=== PATIENT | male | born 1950 | race Caucasian/White ===

== ENCOUNTER 2020-04-30 11:15 | Outpatient (CLI) | payer MEDICARE, OTHER, SELFPAY ==
--- NOTE | ~2020-04-30 | XR_ITS ---
MODIFIED ESOPHAGRAM HISTORY: Dysphagia. TECHNIQUE: Modified barium esophagram was performed on 04/30/2020. I administered fluoroscopy and perf ormed the exam with speech pathologist. Patient was seated for lateral fluoroscopic imaging for isra stion of thin liquids, pudding, solids and quantified amounts, followed by thin liquids in uncontroll ed amounts. This was recorded on tape. A single fluoroscopic spot image was also recorded. The DAP fo r this procedure was 3.538 Gycm2. The amount of fluoroscopy time used during this procedure was 3.4 m inutes. FINDINGS: Oral stage: Adequate function. Pharyngeal stage: Reduced laryngeal elevation and tongue base retraction resulting in increased resid ue at the vallecula and piriform sinuses and laryngeal penetration. No aspiration observed although p atient likely at increased risk. Cervical/esophageal stage: Adequate function. IMPRESSION: Pharyngeal dysphagia with recurrent laryngeal penetration without evident see report aspi ration. Please correlate with speech pathologist findings and specific feeding recommendations. Reviewed, dictated and finalized at location A. IMPRESSION: Pharyngeal dysphagia with recurrent laryngeal penetration without e vident see report aspiration. Please correlate with speech pathologist finding s and specific feeding recommendations.
--- NOTE | 2020-05-01 13:26 | STOPEVAL ---
MODIFIED BARIUM SWALLOW EVALUATION: Thank you for referring Rodolfo Mistry Fabian Olsen to [facility] [place]. Attending ProviderS: Venkatesh Wood MD & Matias Claudio MD * Outpatient Evaluation: MBS Start: 04/30/20 15:39 Freq: Status: Discharge Protocol: Document 04/30/20 11:45 BECHERERT (Rec: 04/30/20 15:56 BECHERERT [id number]) Therapy Assessment Status Assessment Status Assessment Status Evaluation Outpatient Past Medical History Past Medical History Source of Past Medical History Patient Neurological History Hx Parkinson's Disease Yes Prior Level of Function Prior Swallow Level Prior Intake Method Oral Prior Diet Regular (Level 7 Diet) Prior Liquid Consistency Thin (Level 0 Diet) Pain Assessment Timing of Pain Assessment Timing of Pain Assessment Assessment Self Report Self Report Pain Level 0 Pain Score Pain Score 0: Self Report Modified Barium Swallow Evaluation Recent Swallowing History Reports Dysphagia Yes: choking on pills & solids History of Related Medical Diagnosis Parkinson's Disease Other Factors Impacting Dysphagia Neurological Impairment History of Pneumonia No Reported Difficult Consistencies Pills,Solids Intake Method Prior to Swallow Oral Evaluation Diet Prior to Swallow Evaluation Regular, Level 7 Liquid Consistency Prior to Swallow Thin (0) Evaluation Dentition Comments adequate dentition Consistency Thin Uncontrolled 2 Method of Presentation Straw Oral Preparatory Symptoms Within Functional Limits Oral Phase Symptoms Within Functional Limits Pharyngeal Phase Symptoms Laryngeal Penetration,Reduced Laryngeal Elevation,Reduced Lingual Pressure,Residue in [place],Residue/Pyriform Sinus Severity of Vallecular Residue Trace - 1-5 % Trace Coating of the Mucosa Severity of Pyriform Sinus Residue Moderate - 25-50 % Up Wall to Half Full 8 Point Laryngeal Penetration-Aspiration Material Enters the Airway, Scale Remains Above Vocal Folds, is Ejected Pharyngeal Phase Comments Moderate laryngeal penetration occurred during the swallow but appeared to clear without aspiration. Increased aspiration risk c/t cup drinking Cervical/Esophageal Symptoms Within Functional Limits Thin Uncontrolled 1 Method of Presentation Cup Oral Preparatory Symptoms Within Functional Limits Oral Phase Symptoms Within Functional Limits Pharyngeal Phase S
== END 2020-04-30 11:16 | disposition home or self-care (01) ==
PROVIDERS: PCP Family Medicine; Visit Provider Family Medicine
DX: R13.13 Dysphagia, pharyngeal phase (principal)
CPT/HCPCS: 92611

== ENCOUNTER 2020-12-17 14:37 | Outpatient (CLI) | payer MEDICARE, OTHER, SELFPAY | END 2020-12-17 14:38 | disposition home or self-care (01) | LOC: ANHCOVIDVC 14:37 | PROVIDERS: PCP Family Medicine | DX: Z23 Encounter for immunization (principal) | CPT/HCPCS: 0001A; 91300 ==

== ENCOUNTER 2021-01-07 14:33 | Outpatient (CLI) | payer MEDICARE, OTHER, SELFPAY | END 2021-01-07 14:34 | disposition home or self-care (01) | LOC: ANHCOVIDVC 14:34 | PROVIDERS: PCP Family Medicine | DX: Z23 Encounter for immunization (principal) | CPT/HCPCS: 0002A; 91300 ==

== ENCOUNTER 2022-03-11 18:23 | Emergency (ER) | payer MEDICARE, SELFPAY ==
[2022-03-11 18:24] VITALS: BP 118/90; PULSE 85; RESP 24; TEMP 36.4; O2SAT 98
--- NOTE | 2022-03-11 18:32 | ECG_ITS ---
Measurements Intervals [place] Rate: 82 P: 5 SD: 174 QRS: -24 QRSD: 110 T: 11 QT: 403 QTc: 473 Interpretive Statements SINUS RHYTHM FREQUENT ATRIAL PREMATURE COMPLEXES LOW QRS VOLTAGE IN LIMB LEADS BORDERLINE T WAVE ABNORMALITY- DIFFUSE LEADS BASELINE ARTIFACT- I, II, III, AVR, AVL, AVF, V1-V6 ABNORMAL ECG Electronically Signed On 03-11-2022 20:41:20 CDT by Brian Brownlee D.O.
[2022-03-11 18:58] LABS: Basophils Percent Auto 0.2 % (0.2-1.2); Eosinophils Percent Auto 0.3 % (0-4.4); Hematocrit 39.6 % (42.0-52.0); Hemoglobin 12.6 g/dL (14.0-18.0); Immature Granulocyte Absolute 0.02 K/mm3 (0.00-0.031); Immature Granulocyte Percent A 0.3 % (0-0.5); Lymphocytes Absolute Auto 1.08 K/mm3 (0.9-3.2); Lymphocytes Percent Auto 18.2 % (18.3-44.2); Mean Corpuscular HGB Conc 31.8 g/dl (32-36); Mean Corpuscular Hemoglobin 31.3 pg (26-34); Mean Corpuscular Volume 98.3 fl (80-100); Mean Platelet Volume 11.1 fl (7.4-10.4); Monocytes Absolute Auto 0.8 K/mm3 (0.1-0.6); Monocytes Percent Auto 13.4 % (2.6-8.5); Neutrophils Percent Auto 67.6 % (45.5-73.1); Platelet Count Result 177 k/mm3 (150-375); Red Blood Count 4.03 M/mm3 (4.6-6.20); Red Cell Distribution Width 17.3 % (11.5-14.5)
[2022-03-11 19:08] LABS: Alanine Aminotransferase 8 U/L (6-50); Albumin Level 4.2 g/dL (3.5-5.1); Alkaline Phosphatase 79 U/L (38-126); Anion Gap 8 mmol/L (8-16); Aspartate Amino Transferase 44 U/L (17-59); Bilirubin,Total 0.6 mg/dL (0.2-1.3); Blood Urea Nitrogen 17 mg/dL (9-20); Calcium 9.2 mg/dL (8.4-10.2); Carbon Dioxide 28 mmol/L (22-30); Chloride 104 mmol/L (98-107); Estimated CRCL calculation 67 ml/min; Estimated Glomerular Filt Rate > 60; Glucose 110 mg/dL (65-110); Potassium 3.4 mmol/L (3.4-5.0); Sodium 140 mmol/L (137-145)
[2022-03-11 19:09] VITALS: RESP 27; O2SAT 98
[2022-03-11 19:10] LABS: INR 2.2
[2022-03-11 19:11] LABS: Partial Thromboplastin Time 43.5 SECONDS (22.3-36.8)
[2022-03-11] MEDS: SODIUM CHLORIDE 0.9% IV 1,000 ML 999 ML IV CONT (19:55)
[2022-03-11 19:59] VITALS: BP 138/126; PULSE 82; RESP 22; O2SAT 97
--- NOTE | 2022-03-11 20:00 | PC.NURSE ---
Pt keeps arms tense while blood pressure continues. Due to disease process, pt is unable to stay relaxed and still during blood pressure, therefore blood pressure may not be accurate to pt true condition
[2022-03-11 21:04] VITALS: BP 159/109; PULSE 83; RESP 20; O2SAT 95
[2022-03-11 21:16] LABS: Appearance Urine Clear (Clear); Bilirubin Urine 1+ (Negative); Blood Urine Negative (Negative); Color Urine Yellow (Yellow); Glucose Urine UA Negative (Negative); Ketones Urine 1+ mg/dL (Negative); Leukocyte Esterase Ur Negative LEU/UL (Negative); Nitrate Urine Negative (Negative); Protein Urine Trace mg/dL (Negative); Specific Grav Ur >= 1.030 (1.001-1.035); Urobilinogen Urine 0.2 mg/dL (<2.0)
[2022-03-11 21:21] LABS: Add Urine Microscopic? YES; Calcium Oxalate Crystals Urine Present /hpf; Mucus Urine Heavy /lpf; Squamous Epithelial Cell Urine Occasional /hpf (Few)
[2022-03-11 21:46] VITALS: BP 155/99; PULSE 85; RESP 18; O2SAT 94
--- NOTE | 2022-03-11 23:02 | ED.GENADULT ---
HPI - General Adult General Chief complaint: Altered Mental Status Stated complaint: Altered Mental Status, Lift Assist Time Seen by Provider: 03/11/22 19:05 History of Present Illness HPI narrative: Patient is a 72-year-old male who presents the ER with weakness and agitation according to his . Reports he was recently restarted on a Parkinson's medication through PEG tube at [facility]. His tube had malfunctioned and he had been taking Sinemet prior to that. She reports today he was more agitated and not wanting to follow directions. He had poor oral intake and has had some dark urine. She reports she sat on a lawnmower in the front yard for approximately 3 hours with it barely moving. He had no loss consciousness. He denies any pain. He has not fallen. Due to her concern [facility] recommended he be evaluated to make sure there is not an additional issue that may be causing him to act irritable. Patient's also reports that she is currently attempting to find a usp/memory care they can care for him. She does feel she can care for him at this time. Related Data Allergies Allergy/AdvReac Type Severity Reaction Status Date / Time morphine Allergy Severe ESOPHAGEAL Verified 11/22/18 12:30 SPASM niacin Allergy Severe Verified 11/22/18 12:30 Penicillins Allergy Mild Verified 11/22/18 12:30 sertraline Allergy Mild Verified 11/22/18 12:30 oxcarbazepine Allergy Unknown Verified 11/22/18 12:30 Review of Systems Review of Systems: ROS unobtainable: Yes unobtainable due to medical condition PMFSH Past Medical History Medical History (Updated 03/12/22 @ 00:00 by Simran Farris) Anxiety Barretts esophagus COPD (chronic obstructive pulmonary disease) Dementia Depression DVT (deep venous thrombosis) Parkinsons disease Surgical History Surgical History (Updated 03/11/22 @ 23:10 by Daniel Roman MD) History of esophagogastroduodenoscopy (EGD) S/P percutaneous endoscopic gastrostomy (PEG) tube placement Exam Narrative: GENERAL: Chronically ill-appearing, well-nourished, and in no acute distress. HEAD: Normocephalic, atraumatic. EYES: PERRL and EOMI. ENT: Mucous membranes moist. CHEST: Clear to auscultation. No respiratory distress. HEART: Regular rate and rhythm. Normal peripheral pulses. ABDOMEN: Soft, nontender, nondistended. Peg tube w/o signs of infection. EXTREMITIES: Normal range of motion. 1+ edema. SKIN: Warm, dry, no rash. NEURO: Alert and oriented x2. PSYCH: Normal mood and affect. Course Course Emergency Course: Patient resting comfortably. Eating and drinking. Has received IV fluid. has been informed of results. Comfortable discharge home. Vital Signs Vital signs: Vital Signs Temperature 97.5 F L 03/11/22 18:24 Pulse Rate 85 03/11/22 18:24 Respiratory Rate 24 H 03/11/22 18:24 Blood Pressure 118/90 03/11/22 18:24 Pulse Oximetry 98 03/11/22 18:24 Oxygen Delivery Room Air 03/11/22 18:24 Temperature 97.5 F L 03/11/22 18:24 Pulse Rate 70 03/11/22 23:14 Respiratory Rate 18 03/11/22 23:14 Blood Pressure 149/105 H 03/11/22 23:14 Pulse Oximetry 95 03/11/22 23:14 Oxygen Delivery Room Air 03/11/22 18:24 Medical Decision Making Vital Signs Vital Signs: Vital Signs Temperature 97.5 F L 03/11/22 18:24 Pulse Rate 85 03/11/22 18:24 Respiratory Rate 24 H 03/11/22 18:24 Blood Pressure 118/90 03/11/22 18:24 Pulse Oximetry 98 03/11/22 18:24 Oxygen Delivery Room Air 03/11/22 18:24 Temperature 97.5 F L 03/11/22 18:24 Pulse Rate 70 03/11/22 23:14 Respiratory Rate 18 03/11/22 23:14 Blood Pressure 149/105 H 03/11/22 23:14 Pulse Oximetry 95 03/11/22 23:14 Oxygen Delivery Room Air 03/11/22 18:24 Lab Data Result diagrams: 03/11/22 18:52 03/11/22 18:52 Labs: Lab Results 03/11/22 03/11/22 03/11/22 Range/Units 18:52 18:52 18:52 WBC 6.0 (4.5-10.0) K/mm3 RBC
[2022-03-11 23:14] VITALS: BP 149/105; PULSE 70; RESP 18; O2SAT 95
== END 2022-03-11 23:15 | disposition home or self-care (01) ==
PROVIDERS: Emergency Medicine; Emergency Provider Emergency Medicine; PCP Family Medicine
DX: E86.0 Dehydration (principal); G20 Parkinson's disease; F03.90 Unspecified dementia, unspecified severity, without behavioral disturbance, psychotic disturbance, mood disturbance, and anxiety; K22.70 Barrett's esophagus without dysplasia; J44.9 Chronic obstructive pulmonary disease, unspecified; Z86.718 Personal history of other venous thrombosis and embolism; I49.1 Atrial premature depolarization; R94.31 Abnormal electrocardiogram [ECG] [EKG]
CPT/HCPCS: 36415; 80053; 81001; 85025; 85610; 85730; 93005; 96360; 99283; J7030

== ENCOUNTER 2022-05-08 19:40 | Emergency (ER) | payer MEDICARE, SELFPAY ==
[2022-05-08 19:37] VITALS: BP 134/89; PULSE 94; RESP 20; TEMP 36.9; O2SAT 95
--- NOTE | 2022-05-08 20:13 | ED.FEVER ---
HPI - Fever General Chief Complaint: Fever Stated Complaint: fever and painful urination Time Seen by Provider: 05/08/22 19:48 History of Present Illness HPI Narrative: 72-year-old male presented to the emergency department for evaluation of fever with suspected urinary tract infection. Patient does have underlying history of Parkinson's and dementia. states that the patient has been more agitated today. Related Data Allergies Allergy/AdvReac Type Severity Reaction Status Date / Time morphine Allergy Severe ESOPHAGEAL Verified 11/22/18 12:30 SPASM niacin Allergy Severe Verified 11/22/18 12:30 Penicillins Allergy Mild Verified 11/22/18 12:30 sertraline Allergy Mild Verified 11/22/18 12:30 oxcarbazepine Allergy Unknown Verified 11/22/18 12:30 Review of Systems Review of Systems: ROS unobtainable: Yes unobtainable due to medical condition PMFSH Past Medical History Medical History (Updated 05/09/22 @ 00:00 by Simran Farris) Anxiety Barretts esophagus COPD (chronic obstructive pulmonary disease) Dementia Depression DVT (deep venous thrombosis) Parkinsons disease Surgical History Surgical History (Updated 03/11/22 @ 23:10 by Daniel Roman MD) History of esophagogastroduodenoscopy (EGD) S/P percutaneous endoscopic gastrostomy (PEG) tube placement Exam Narrative: APPEARANCE: Well appearing HEAD: normocephalic, atraumatic. EYES: PERRLA/EOMI, conjunctivae clear. NOSE: Normal no drainage NECK: Supple. No adenopathy, no masses. RESPIRATORY: Airway patent, respirations nonlabored. Clear to auscultation bilaterally, no rales, rhonchi, wheezing. CARDIOVASCULAR: Regular rate and rhythm without murmurs rubs or gallops. ABDOMINAL: Soft, nontender, nondistended, normal bowel sounds MUSCULOSKELETAL: Moves all extremities. Strength/ROM intact, No edema, No calf tenderness. NEURO: Alert. Cranial nerves II through XII intact. At patient's baseline. No focal deficit SKIN: Warm, dry. Normal Color Course Course Emergency Course: Patient does have a urinary tract infection. Patient was started on Cipro due to underlying medication allergies. Patient was offered admission and patient and declined and preferred discharge to home. They were educated on reasons to return to the emergency department and on the importance of close follow-up with primary care physician. All question concerns were addressed. Patient was well-appearing at time of discharge from the emergency department. Vital Signs Vital signs: Vital Signs Temperature 98.5 F 05/08/22 19:37 Pulse Rate 94 05/08/22 19:37 Respiratory Rate 20 05/08/22 19:37 Blood Pressure 134/89 05/08/22 19:37 Pulse Oximetry 95 05/08/22 19:37 Oxygen Delivery Room Air 05/08/22 19:37 Temperature 98.5 F 05/08/22 19:37 Pulse Rate 94 05/08/22 19:37 Respiratory Rate 20 05/08/22 19:37 Blood Pressure 134/89 05/08/22 19:37 Pulse Oximetry 95 05/08/22 19:37 Oxygen Delivery Room Air 05/08/22 19:37 MDM - Fever Lab Data Attestation: I reviewed the patient's lab results. Result diagrams: 05/08/22 20:33 05/08/22 20:33 Labs: Lab Results 05/08/22 05/08/22 05/08/22 Range/Units 20:14 20:33 20:33 WBC 5.9 (4.5-10.0) K/mm3 RBC 4.01 L (4.6-6.20) M/mm3 Hgb 12.2 L (14.0-18.0) g/dL Hct 38.8 L (42.0-52.0) % MCV 96.8 (80-100) fl MCH 30.4 (26-34) pg MCHC 31.4 L (32-36) g/dl RDW 15.9 H (11.5-14.5) % Plt Count 188 (150-375) k/mm3 MPV 10.8 H (7.4-10.4) fl Immature Gran % (Auto) 0.8 H (0-0.5) % Neut % (Auto) 79.1 H (45.5-73.1) % Lymph % (Auto) 4.2 L (18.3-44.2) % [place] % (Auto) 15.7 H (2.6-8.5) % Eos % (Auto) 0.0 (0-4.4) % Baso % (Auto) 0.2 (0.2-1.2) % Lymph # (Auto) 0.25 L (0.9-3.2) K/mm3 [place] # (Auto) 0.9 H (0.1-0.6) K/mm3 Eos # (Auto) 0.0 (0-0.3) K/mm3 Baso # (Auto) 0.0 (0.0-0.1) K/mm3 Abs Immat G
[2022-05-08] MEDS: SODIUM CHLORIDE 0.9% IV 1,000 ML 999 ML IV CONT (20:35)
[2022-05-08 20:37] LABS: Basophils Percent Auto 0.2 % (0.2-1.2); Hematocrit 38.8 % (42.0-52.0); Hemoglobin 12.2 g/dL (14.0-18.0); Immature Granulocyte Absolute 0.05 K/mm3 (0.00-0.031); Immature Granulocyte Percent A 0.8 % (0-0.5); Lymphocytes Absolute Auto 0.25 K/mm3 (0.9-3.2); Lymphocytes Percent Auto 4.2 % (18.3-44.2); Mean Corpuscular HGB Conc 31.4 g/dl (32-36); Mean Corpuscular Hemoglobin 30.4 pg (26-34); Mean Corpuscular Volume 96.8 fl (80-100); Mean Platelet Volume 10.8 fl (7.4-10.4); Monocytes Absolute Auto 0.9 K/mm3 (0.1-0.6); Monocytes Percent Auto 15.7 % (2.6-8.5); Neutrophils Absolute Auto 4.7 K/mm3 (1.3-6.7); Neutrophils Percent Auto 79.1 % (45.5-73.1); Platelet Count Result 188 k/mm3 (150-375); Red Blood Count 4.01 M/mm3 (4.6-6.20); Red Cell Distribution Width 15.9 % (11.5-14.5); White Blood Count 5.9 K/mm3 (4.5-10.0)
[2022-05-08] MEDS: LORazepam INJ (*CRX) 2 MG/ML VIAL 0.5 MG IV PUSH (20:37)
[2022-05-08 20:49] LABS: Alanine Aminotransferase 7 U/L (6-50); Albumin Level 3.8 g/dL (3.5-5.1); Alkaline Phosphatase 97 U/L (38-126); Anion Gap 8 mmol/L (8-16); Aspartate Amino Transferase 23 U/L (17-59); Bilirubin,Total 1.1 mg/dL (0.2-1.3); Blood Urea Nitrogen 21 mg/dL (9-20); Calcium 9.3 mg/dL (8.4-10.2); Carbon Dioxide 29 mmol/L (22-30); Chloride 99 mmol/L (98-107); Estimated Glomerular Filt Rate > 60; Glucose 100 mg/dL (65-110); Potassium 3.6 mmol/L (3.4-5.0); Sodium 136 mmol/L (137-145)
[2022-05-08 20:56] LABS: SARS-CoV-2 RNA PCR Negative
[2022-05-08 21:05] LABS: Appearance Urine Slightly Cloudy (Clear); Bilirubin Urine 1+ (Negative); Blood Urine 2+ (Negative); Color Urine Yellow (Yellow); Glucose Urine UA Negative (Negative); Ketones Urine 1+ mg/dL (Negative); Leukocyte Esterase Ur 2+ LEU/UL (Negative); Nitrate Urine Positive (Negative); Protein Urine 2+ mg/dL (Negative); Specific Grav Ur 1.025 (1.001-1.035)
[2022-05-08 21:17] LABS: Add Urine Microscopic? YES; Bacteria Urine Trace /hpf; Calcium Oxalate Crystals Urine Present /hpf; Mucus Urine Moderate /lpf; RBC Urine >75 /hpf (0-2); WBC Clumps Urine Present /HPF; WBC Urine >75 /hpf
[2022-05-08] MEDS: CIPROFLOXACIN 400 MG/D5W 200ML 200 ML 200 MG IVPB (22:06)
== END 2022-05-08 23:48 | disposition home or self-care (01) ==
PROVIDERS: Emergency Provider Emergency Medicine; PCP Family Medicine
DX: N39.0 Urinary tract infection, site not specified (principal); Z20.822 Contact with and (suspected) exposure to COVID-19; G20 Parkinson's disease; F03.90 Unspecified dementia, unspecified severity, without behavioral disturbance, psychotic disturbance, mood disturbance, and anxiety; J44.9 Chronic obstructive pulmonary disease, unspecified; K22.70 Barrett's esophagus without dysplasia; Z86.718 Personal history of other venous thrombosis and embolism
CPT/HCPCS: 36415; 51701; 80053; 81001; 85025; 87077; 87086; 87186; 99283; C9803; J0131; J0744; J2060; J7030; U0003; U0005

== ENCOUNTER 2022-05-28 18:19 | Inpatient (IN) | payer MEDICARE, SELFPAY ==
--- NOTE | ~2022-05-28 | XR_ITS ---
XR chest 1V portable 05/28/2022 19:04 Indication: Fever. COPD. Dementia. Procedure: AP portable chest Comparison: Comparison to multiple prior studies sequentially, with oldest reviewed study dated 03/2016. Findings: Cardiomegaly. Moderate gastric distention. There is bibasilar atelectasis. No focal pneumon ia, edema or pneumothorax. No significant effusion. Impression: 1: Bibasilar atelectasis. 2: Cardiomegaly. Reviewed, dictated and finalized at location A. Impression: 1: Bibasilar atelectasis. 2: Cardiomegaly.
--- NOTE | ~2022-05-28 | CT_ITS ---
EXAMINATION: CT abdomen pelvis w con DATE: 05/28/2022 19:58 INDICATION: Fever. Possible pyelonephritis. TECHNIQUE: Computed tomography (CT) of the abdomen and pelvis was performed without intravenous contr ast. The dose-length product was 1061.54 mGy-cm. Automated exposure control and iterative reconstruct ion technique were employed. COMPARISON: CT dated 02/21/2016. FINDINGS: There is right lower lobe dependent atelectasis. There is a jejunal tube. There is severe g astric distention. There are multiple hypovascular areas of the right hepatic lobe inferiorly which a ppears slightly more prominent than on prior CT examination, possibly related to timing of contrast b olus. Recommend correlation with MRI for further characterization of these masses. The largest measur es approximately 4.4 x 4 cm, image 57. The spleen, pancreas, adrenal glands and kidneys are unremarka ble. Status post cholecystectomy. There is moderate fluid throughout the small bowel. Moderate coloni c fecal loading. There is atherosclerosis and ectasia of the aorta and iliac arteries. There is bladd er wall thickening, suspicious for cystitis. Sclerotic lesion is present in L4, likely bone island. M oderate lumbar spondylosis. IMPRESSION: 1. Severe gastric distention with percutaneous jejunal tube present. 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 Although these are likely benign, further evaluation with MRI with contrast is recommended for better characterization. 3: Bladder wall thickening, suspicious for cystitis. Clinically correlate. 4: Moderate fluid throughout the small bowel. Consider enteritis in the appropriate clinical setting versus adynamic ileus. Reviewed, dictated and finalized at location A. IMPRESSION: 1. Severe gastric distention with percutaneous jejunal tube present. 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 Although these are likely benign, further evalu ation with MRI with contrast is recommended for better characterization. 3: Bladder wall thickening, suspicious for cystitis. Clinically correlate. 4: Moderate fluid throughout the small bowel. Consider enteritis in the approp riate clinical setting versus adynamic ileus.
[2022-05-28 18:10] VITALS: BP 105/73; PULSE 110; RESP 16; TEMP 37.4; O2SAT 95
--- NOTE | 2022-05-28 18:19 | ECG_ITS ---
Measurements Intervals [place] Rate: 93 P: 22 ND: 137 QRS: -31 QRSD: 97 T: 41 QT: 326 QTc: 405 Interpretive Statements SINUS RHYTHM BASELINE ARTIFACT LEFT AXIS DEVIATION LOW QRS VOLTAGE IN EXTREMITY LEADS ABNORMAL ECG COMPARED TO ECG 03/11/2022 18:55:23 LEFT-AXIS DEVIATION NOW PRESENT Electronically Signed On 05-29-2022 13:26:19 CDT by Manuel Frederick M.D.
[2022-05-28 18:26] LABS: Hematocrit 39.1 % (42.0-52.0); Mean Corpuscular HGB Conc 30.7 g/dl (32-36); Mean Corpuscular Hemoglobin 30.2 pg (26-34); Mean Corpuscular Volume 98.5 fl (80-100); Mean Platelet Volume 11.3 fl (7.4-10.4); Platelet Count Result 160 k/mm3 (150-375); Red Blood Count 3.97 M/mm3 (4.6-6.20); Red Cell Distribution Width 16.8 % (11.5-14.5); White Blood Count 13.1 K/mm3 (4.5-10.0)
[2022-05-28 18:36] LABS: Alanine Aminotransferase 16 U/L (6-50); Albumin Level 3.7 g/dL (3.5-5.1); Alkaline Phosphatase 144 U/L (38-126); Anion Gap 9 mmol/L (8-16); Aspartate Amino Transferase 104 U/L (17-59); Bilirubin,Total 0.8 mg/dL (0.2-1.3); Blood Urea Nitrogen 19 mg/dL (9-20); Carbon Dioxide 27 mmol/L (22-30); Chloride 102 mmol/L (98-107); Estimated CRCL calculation 64 ml/min; Estimated Glomerular Filt Rate > 60; Glucose 109 mg/dL (65-110); Potassium 3.9 mmol/L (3.4-5.0); Sodium 138 mmol/L (137-145)
[2022-05-28 18:39] LABS: INR 1.4; Prothrombin Time 16.3 Seconds (11.1-14.7)
[2022-05-28 18:40] LABS: Partial Thromboplastin Time 29.4 SECONDS (22.3-36.8)
[2022-05-28 18:46] LABS: Band Neutrophils Percent 12 % (0-6); Lymphocytes Percent Manual 0 % (18-44); Monocytes Absolute Manual 0.26 K/mm3 (0.1-0.90); Monocytes Percent Manual 2 % (3-9); Neutrophils Absolute Manual 12.83 K/mm3 (1.3-6.7); Neutrophils Percent Manual 86 % (46-73); Platelet Estimate Adequate (Adequate); Total Cells Counted 100
[2022-05-28 18:47] LABS: Anisocytosis 1+ (NORMAL); Stomatocytes 1+ (NORMAL)
[2022-05-28] MEDS: SODIUM CHLORIDE 0.9% IV 1,000 ML 999 ML IV CONT ×2 (18:49→20:01)
[2022-05-28 18:54] LABS: Appearance Urine Slightly Cloudy (Clear); Bilirubin Urine Negative (Negative); Color Urine Yellow (Yellow); Glucose Urine UA Negative (Negative); Ketones Urine Trace mg/dL (Negative); Leukocyte Esterase Ur 1+ LEU/UL (Negative); Nitrate Urine Negative (Negative); Protein Urine 1+ mg/dL (Negative); Urobilinogen Urine 0.2 mg/dL (<2.0)
[2022-05-28 18:58] LABS: Bacteria Urine Trace /hpf; Mucus Urine Rare /lpf; WBC Urine 31-50 /hpf
[2022-05-28 19:05] LABS: Add Urine Microscopic? YES; Blood Urine Trace-Intact (Negative)
--- NOTE | 2022-05-28 19:08 | ED.FEVER ---
HPI - Fever General Chief Complaint: Fever Stated Complaint: FEVER Time Seen by Provider: 05/28/22 18:21 Source: family (), EMS, RN notes reviewed and old records reviewed Mode of arrival: EMS Limitations: dementia (parkinson) History of Present Illness HPI Narrative: This is a 72 year old male with history of Parkinson's who presents with his for concern of fever. She states patient would not eat this evening and he started to get weak. She states it took 2 people to get him to the commode. He also developed a fever at home. She is concerned he may have another UTI. He was diagnosed with UTI 2 weeks ago and he completed 5 days of antibiotics. Patient speech is mumbled due to parkinson's so he is hard to understand. Related Data Home Medications Medication Instructions Recorded Confirmed alprazolam 0.5 mg tablet mg 05/28/22 Allergies Allergy/AdvReac Type Severity Reaction Status Date / Time morphine Allergy Severe ESOPHAGEAL Verified 05/28/22 18:21 SPASM niacin Allergy Severe Rash Verified 05/28/22 18:21 Penicillins Allergy Mild Hives Verified 05/28/22 18:21 sertraline Allergy Mild Rash Verified 05/28/22 18:21 oxcarbazepine Allergy Unknown Muscle Verified 05/28/22 18:21 Spasms Review of Systems Review of Systems: ROS unobtainable: Yes unobtainable due to medical condition PMFSH Past Medical History Medical History Anxiety Barretts esophagus COPD (chronic obstructive pulmonary disease) Dementia Depression DVT (deep venous thrombosis) Parkinsons disease Surgical History Surgical History History of esophagogastroduodenoscopy (EGD) S/P percutaneous endoscopic gastrostomy (PEG) tube placement Exam Const: General: alert and ill appearing chronically Nutritional Appearance: well nourished Other: follows commands. Will answer yes and no HENMT: Head: normal to inspection Mouth: Yes Normal oral and palatal mucosa present, Yes lip normal and Yes moist mucous membranes Eyes: EOM: EOMs intact bilaterally Chest: Chest palpation & inspection: normal inspection of the chest Resp: Effort & Inspection: normal respiratory effort Auscultation: clear to auscultation bilaterally Cardio: Rate: tachycardic Rhythm: regular rhythm Heart sounds: Murmur heart sound present GI: GI Palp: Yes Soft to palpation, No Tenderness to palpation present (GI), No Guarding due to palpation present (GI) and No Rigid due to palpation Auscultation: normal bowel sounds Other: jejunal tube in place Skin: General skin exam: normal color Neuro: General: moves all extremities Other: speech slow and mumbles, baseline, tremors Extrem: Other: moves all,extremities Psych: Appearance: grossly normal Course Reevaluation(s) Reevaluation #1: I discussed with patient and that he should be admitted. They are agreeable at this time. Dr. Antonio accepts patient to medical floor at this time. Heart rate is improved to 90 and he is normotensive . Date: 05/28/22 Time: 20:25 Vital Signs Vital signs: Vital Signs Temperature 99.4 F 05/28/22 18:10 Pulse Rate 110 H 05/28/22 18:10 Respiratory Rate 16 05/28/22 18:10 Blood Pressure 105/73 05/28/22 18:10 Pulse Oximetry 95 05/28/22 18:10 Oxygen Delivery Room Air 05/28/22 18:10 Temperature 99.4 F 05/28/22 18:10 Pulse Rate 95 05/28/22 20:06 Respiratory Rate 22 H 05/28/22 20:06 Blood Pressure 112/82 05/28/22 20:06 Pulse Oximetry 95 05/28/22 20:06 Oxygen Delivery Room Air 05/28/22 18:10 MDM - Fever Medical Records Attestation: I reviewed the patient's medical records. Lab Data Attestation: I reviewed the patient's lab results. Result diagrams: 05/28/22 18:22 05/28/22 18:22 Labs: Lab Results 05/28/22 05/28/22 05/28/22 Range/Units 18:21 18:22 18:22 WBC 13.
[2022-05-28 19:41] LABS: Lactic Acid Reflex 3.7 mmol/L (0.7-2.0); Lipase 15 U/L (23-300)
--- NOTE | 2022-05-28 19:43 | PC.NURSE ---
Patient down in CT Scan medication will be given when he gets back
[2022-05-28] MEDS: LORazepam INJ (*CRX) 2 MG/ML VIAL 0.5 MG IV PUSH (20:03)
[2022-05-28 20:06] VITALS: BP 112/82; PULSE 95; RESP 22; O2SAT 95
--- NOTE | 2022-05-28 20:18 | PM.IMHP ---
H&P: HPI History of Present Illness Date/Time: 05/28/22 20:18 Chief Complaint: Altered mental status Narrative: This is a 72-year-old male with past medical history significant for Parkinson's disease, status post percutaneous carbidopa levodopa pump implantation for continues infusion, Parkinson's dementia, PEG tube patient is mainly wheelchair bound and bed ridden. brings in to the emergency room for evaluation due to concerns after his been very anxious , agitated, restless and having choreoathetoid movements for the last day or so patient had a visit to the emergency room where he was diagnosed with urinary tract infection and sent home this was roughly 2 weeks ago. Most of the history has been obtained upon talking to as patient heart received earlier upon arrival to emergency room [facility] due to his restlessness and agitation at the time of my visit patient is sedated resting comfortably. denies noticing any rigors, did not have a fever at home, no nausea, no vomiting. Preliminary workup was significant for white count 00827 bands 12% lactic acid 3.7, urine was significant for WBCs 31-50 per high-power field a chest x-ray was significant for bibasilar atelectasis, cardiomegaly. CT of abdomen and pelvis: 1. Severe gastric distention with percutaneous jejunal tube present. 2:? 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 Although these are likely benign, further evaluation with MRI with contrast is recommended for better characterization. 3:? Bladder wall thickening, suspicious for cystitis. Clinically correlate. 4:? Moderate fluid throughout the small bowel. Consider enteritis in the appropriate clinical setting versus adynamic ileus. patient was also found to have a heart rate 110, temp of 99.4?, blood pressure 105/64. Review of Systems Review of Systems: ROS unobtainable: Yes unobtainable due to mental status ( obtundation) [facility] Past Medical History Medical History (Updated 05/28/22 @ 22:27 by Elena Antonio MD) Anxiety Barretts esophagus COPD (chronic obstructive pulmonary disease) Dementia Depression DVT (deep venous thrombosis) Parkinsons disease Surgical History Surgical History (Updated 05/28/22 @ 22:21 by Elena Antonio MD) History of esophagogastroduodenoscopy (EGD) S/P percutaneous endoscopic gastrostomy (PEG) tube placement Meds Home Medications and Allergies Home Medications Medication Instructions Recorded Confirmed Type ciprofloxacin HCl 500 mg tablet 500 mg PO DAILY 5 days #5 tabs 05/08/22 Rx alprazolam 0.5 mg tablet mg 05/28/22 History Allergies Allergy/AdvReac Type Severity Reaction Status Date / Time morphine Allergy Severe ESOPHAGEAL Verified 05/28/22 18:21 SPASM niacin Allergy Severe Rash Verified 05/28/22 18:21 Penicillins Allergy Mild Hives Verified 05/28/22 18:21 sertraline Allergy Mild Rash Verified 05/28/22 18:21 oxcarbazepine Allergy Unknown Muscle Verified 05/28/22 18:21 Spasms Vital Signs Vital Signs - 24 hr 05/28/22 18:10 05/28/22 20:06 Temperature 99.4 F Pulse Rate 110 H 95 Respiratory Rate 16 22 H Blood Pressure 105/73 112/82 Pulse Oximetry 95 95 Oxygen Delivery Room Air Exam Const: General: comfortable, no acute distress, well developed, ill appearing acutely and patient obtunded Nutritional Appearance: average body habitus Orientation/consciousness: lethargic HENMT: Head: normal to inspection, normocephalic and atraumatic Eyes: General: appearance normal, both eyes and all related structures Pupils: Equal, round and reactive pupils present EOM: EOMs intact bilaterally Neck: Neck: full ROM, no lymphadenopathy and no JVD Thyroid: thyroid normal Lymphatic: no lymphadenopathy noted Resp: Effort & Inspection: normal respiratory effort Auscultation: clear to auscultation bilaterally Cardio: Jugular venous distension: no JVD Rate: regular rate Rhy
[2022-05-28 20:27] LABS: Influenza A QL RT-PCR Negative (Negative); Influenza B QL RT-PCR Negative (Negative); SARS-CoV-2 RNA PCR Negative
[2022-05-28] MEDS: SODIUM CHLORIDE 0.9% IV 500 ML 999 ML IV CONT (22:00)
[2022-05-28 22:22] VITALS: BP 118/72; PULSE 80; RESP 18; O2SAT 98
[2022-05-28 22:30] LABS: Reflex Lactic Acid Yes or No Add Lactic
--- NOTE | 2022-05-28 22:55 | ADMGEN ---
This patient, Rodolfo Peralta Jr., was admitted to [facility] Surg Room 329-01. Patient/family oriented to hospital policies and general routines including ID bracelet, bed and alarms, visiting hours, pain management, procedures, bathroom and other care routines, personal items, smoking policy, room service/diet, and visiting hours. Information on how to activate the Rapid Response Team has been discussed. Patient/Family are encouraged to report perceived risks to care and to ask questions if they do not understand what they are told or what they should do.
[2022-05-28 22:56] VITALS: BP 130/89; PULSE 85; RESP 16; TEMP 37.1; O2SAT 97; BMI 23.3
[2022-05-28 23:00] LABS: Lactic Acid Reflex 3.2 mmol/L (0.7-2.0)
[2022-05-29] MEDS: SODIUM CHLORIDE 0.9% IV 1,000 ML 125 ML IV CONT ×3 (00:07→16:55)
[2022-05-29 05:42] VITALS: BP 138/98; PULSE 56; RESP 16; TEMP 37.9; O2SAT 97
[2022-05-29 06:27] LABS: Basophils Percent Auto 0.2 % (0.2-1.2); Hematocrit 36.4 % (42.0-52.0); Hemoglobin 11.1 g/dL (14.0-18.0); Immature Platelet Fraction Pct 10.2 % (0.9-11.2); Lymphocytes Absolute Auto 0.51 K/mm3 (0.9-3.2); Lymphocytes Percent Auto 2.5 % (18.3-44.2); Mean Corpuscular HGB Conc 30.5 g/dl (32-36); Mean Corpuscular Hemoglobin 30.2 pg (26-34); Mean Corpuscular Volume 98.9 fl (80-100); Mean Platelet Volume 11.3 fl (7.4-10.4); Monocytes Absolute Auto 1.7 K/mm3 (0.1-0.6); Monocytes Percent Auto 8.2 % (2.6-8.5); Neutrophils Absolute Auto 17.9 K/mm3 (1.3-6.7); Neutrophils Percent Auto 87.1 % (45.5-73.1); Platelet Count Result 128 k/mm3 (150-375); Red Blood Count 3.68 M/mm3 (4.6-6.20); Red Cell Distribution Width 16.9 % (11.5-14.5); White Blood Count 20.5 K/mm3 (4.5-10.0)
[2022-05-29 06:37] LABS: Alanine Aminotransferase 17 U/L (6-50); Albumin Level 3.3 g/dL (3.5-5.1); Alkaline Phosphatase 117 U/L (38-126); Anion Gap 8 mmol/L (8-16); Aspartate Amino Transferase 56 U/L (17-59); Bilirubin,Total 0.9 mg/dL (0.2-1.3); Blood Urea Nitrogen 19 mg/dL (9-20); Calcium 8.5 mg/dL (8.4-10.2); Carbon Dioxide 27 mmol/L (22-30); Chloride 102 mmol/L (98-107); Estimated CRCL calculation 87 ml/min; Estimated Glomerular Filt Rate > 60; Glucose 89 mg/dL (65-110); Sodium 137 mmol/L (137-145)
--- NOTE | 2022-05-29 08:02 | PM.IMPN ---
Progress Note: A&P Assessment and Plan (1) Sepsis: Code(s): A41.9 - Sepsis, unspecified organism Status: Acute (2) Acute UTI: Code(s): N39.0 - Urinary tract infection, site not specified Status: Acute (3) Urinary retention with incomplete bladder emptying: Code(s): R33.9 - Retention of urine, unspecified Status: Acute (4) Dementia: Qualifiers: Dementia behavioral disturbance: without behavioral disturbance Dementia type: Parkinson's disease Qualified Code(s): G20 - Parkinson's disease; F02.80 - Dementia in other diseases classified elsewhere without behavioral disturbance Code(s): F03.90 - Unspecified dementia without behavioral disturbance Status: Acute (5) Barretts esophagus: Code(s): K22.70 - Mo's esophagus without dysplasia Status: Acute (6) Parkinsons disease: Code(s): G20 - Parkinson's disease Status: Acute (7) S/P percutaneous endoscopic gastrostomy (PEG) tube placement: Code(s): Z93.1 - Gastrostomy status Status: Acute Plan 05/28/22 ?admit to regular medical floor ?early goal therapy in progress ?started on levofloxacin ?cultures in progress ?supportive care ?secondary to urinary tract infection ?patient with pansensitive E coli growing in culture from May 08, 2022 ?supportive care ?PPI ?continue carbidopa levodopa pump ?local care 05/29/22 cont Levaquin cont Sinemet per J tube britt insertion if ongoing urinary retention urine cx pending trial flomax started empirically Subjective Date/time seen: 05/29/22 08:02 pt complaining of full bladder, RN requested to bladder scan post void, > 250 residual, straight cath >500 RN advised to leave britt inserted if pt continues to retain Review of Systems Review of Systems: All systems reviewed & are unremarkable except as noted in HPI and below Exam Narrative: GEN: NAD, AAOx2, cooperative HEENT: NCAT, MMM, EOMI Neck: no JVD Heart: S1S2 RRR Lungs: CTA B/l Abd: soft, NT, ND, bowel sounds normoactive Ext: moves all, no cyanosis, no clubbing, no edema Neuro: slow cognition, moves all extremities, CN intact no focal deficit noted Psych: mood appropriate, affect flattened Objective Data Vital Signs Vital Signs: Vital Signs - 24 hr 05/28/22 18:10 05/28/22 20:06 05/28/22 22:22 Temperature 99.4 F Pulse Rate 110 H 95 80 Respiratory Rate 16 22 H 18 Blood Pressure 105/73 112/82 118/72 Pulse Oximetry 95 95 98 Oxygen Delivery Room Air 05/28/22 22:56 05/29/22 05:42 Temperature 98.8 F 100.3 F H Pulse Rate 85 56 L Respiratory Rate 16 16 Blood Pressure 130/89 138/98 H Pulse Oximetry 97 97 Oxygen Delivery Intake/Output Intake/Output: Intake & Output 05/26/22 05/27/22 05/28/22 05/29/22 23:59 23:59 23:59 23:59 Intake Total 2250 500 Output Total 100 Balance 2150 500 Meds/Results Medications: Active Medications Generic Name Dose Route Start Last Admin Trade Name Freq PRN Reason Stop Dose Admin Acetaminophen 1,000 mg in 100 mls @ 400 mls/hr 05/28/22 21:21 Ofirmev 1,000 Mg Ivpb IVPB 05/29/22 21:20 Q6H PRN Mild Pain (1-3) or Fever Sodium Chloride 1,000 mls @ 125 mls/hr 05/28/22 21:25 05/29/22 00:07 Normal Saline Iv IV CONT 125 mls/hr .Q8H LYNNE Administration Radiology Results: ITS Impressions Chest X-Ray 05/28/22 19:09 Impression: 1: Bibasilar atelectasis. 2: Cardiomegaly. Abdomen/Pelvis CT 05/28/22 20:00 IMPRESSION: 1. Severe gastric distention with percutaneous jejunal tube present. 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 Although these are likely benign, further evaluation with MRI with contrast is recommended for better characterization. 3: Bladder wall thickening, suspicious for cystitis. Clinically correlate. 4: Moderate fluid throughout the small bowel. Consider enteritis in the nidia
[2022-05-29 10:10] LABS: Lactic Acid Reflex 1.6 mmol/L (0.7-2.0)
[2022-05-29] MEDS: APIXABAN 2.5 MG TABLET PO ×2 (10:10→16:53)
[2022-05-29] MEDS: VENLAFAXINE HCL 75 MG TABLET PO ×3 (10:10→16:53)
[2022-05-29] MEDS: ROSUVASTATIN 10 MG TABLET PO (10:10)
[2022-05-29] MEDS: ALPRAZolam (*CRX) 0.5 MG TABLET PO ×3 (10:12→16:53)
--- NOTE | 2022-05-29 10:27 | PHAR ---
HOME MED: NEXIUM 40 MG CAPSULE; TAKE 1 CAPSULE BY MOUTH TWICE DAILY BEFORE BREAKFAST AND DINNER. PHARMACIST VERIFIED.
[2022-05-29] MEDS: ONDANSETRON HCL ODT 4 MG TABLET PO (11:26)
--- NOTE | 2022-05-29 13:12 | PC.NURSE ---
Per MD instructions, pt was bladder scanned immediately after pt urinated in the urinal (50 mL). Bladder scan was repeated several times to ensure accuracy with the highest reading being 259 mL). Pt was then catheterized which produced a urine output of approximately 550 mL. In order to get the bladder to release the urine the entire catheter had to be inserted even beyond the point of typical insertion level. When the catheter was withdrawn to the point of normal insertion point, the release of urine ceased. The catheter was then inserted further and urine began to flow through the catheter tube again.
[2022-05-29 14:21] LABS: Lactic Acid Reflex 1.2 mmol/L (0.7-2.0)
[2022-05-29 15:00] VITALS: BP 125/86; PULSE 74; RESP 16; TEMP 36.7; O2SAT 96
[2022-05-29 20:00] VITALS: PULSE 74; RESP 16; O2SAT 96
[2022-05-29] MEDS: TAMSULOSIN HCL 0.4 MG CAPSULE PO (20:35)
[2022-05-30] VITALS: BP 125/88; PULSE 65; RESP 16; TEMP 36.4; O2SAT 94
[2022-05-30] MEDS: SODIUM CHLORIDE 0.9% IV 1,000 ML 125 ML IV CONT ×2 (02:40→15:12)
[2022-05-30] MEDS: VENLAFAXINE HCL 75 MG TABLET PO ×3 (09:02→16:39)
[2022-05-30] MEDS: LORATADINE/PSEUDOEPHEDRINE (*CRX) 10/240 MG TABLET ER 24 HR 1 TAB PO (09:02)
[2022-05-30] MEDS: ALPRAZolam (*CRX) 0.5 MG TABLET PO ×3 (09:02→16:39)
[2022-05-30] MEDS: ROSUVASTATIN 10 MG TABLET PO (09:02)
[2022-05-30] MEDS: ONDANSETRON HCL ODT 4 MG TABLET PO (09:02)
[2022-05-30] MEDS: TAMSULOSIN HCL 0.4 MG CAPSULE PO (09:02)
[2022-05-30] MEDS: APIXABAN 2.5 MG TABLET PO ×2 (09:02→16:39)
[2022-05-30 09:30] VITALS: PULSE 72; O2SAT 96
--- NOTE | 2022-05-30 09:30 | PM.IMPN ---
Progress Note: A&P Assessment and Plan (1) Sepsis: Code(s): A41.9 - Sepsis, unspecified organism Status: Acute (2) Bacteremia, escherichia coli: Code(s): R78.81 - Bacteremia; B96.20 - Unspecified Escherichia coli [E. coli] as the cause of diseases classified elsewhere Status: Acute (3) Acute UTI: Code(s): N39.0 - Urinary tract infection, site not specified Status: Acute (4) Urinary retention with incomplete bladder emptying: Code(s): R33.9 - Retention of urine, unspecified Status: Acute (5) Dementia: Qualifiers: Dementia behavioral disturbance: without behavioral disturbance Dementia type: Parkinson's disease Qualified Code(s): G20 - Parkinson's disease; F02.80 - Dementia in other diseases classified elsewhere without behavioral disturbance Code(s): F03.90 - Unspecified dementia without behavioral disturbance Status: Acute (6) Barretts esophagus: Code(s): K22.70 - Mo's esophagus without dysplasia Status: Acute (7) Parkinsons disease: Code(s): G20 - Parkinson's disease Status: Acute (8) S/P percutaneous endoscopic gastrostomy (PEG) tube placement: Code(s): Z93.1 - Gastrostomy status Status: Acute Plan 05/28/22 ?admit to regular medical floor ?early goal therapy in progress ?started on levofloxacin ?cultures in progress ?supportive care ?secondary to urinary tract infection ?patient with pansensitive E coli growing in culture from May 08, 2022 ?supportive care ?PPI ?continue carbidopa levodopa pump ?local care 05/29/22 cont Levaquin cont Sinemet per J tube britt insertion if ongoing urinary retention urine cx pending trial flomax started empirically 05/30/22 rising leukocytosis blood and urine cx positive for gram neg bacilli (Ecoli in urine) will cover for ESBL ecoli w imipenem until sensitivities released cont IVFs cont home meds c/s Dr Ward to rigoberto pt for possible improvement of parkinsons sxs Subjective Date/time seen: 05/30/22 09:30 pt doing ok bladder soft no britt present Review of Systems Review of Systems: All systems reviewed & are unremarkable except as noted in HPI and below Exam Narrative: GEN: NAD, AAOx2, cooperative HEENT: NCAT, MMM, EOMI Neck: no JVD Heart: S1S2 RRR Lungs: CTA B/l Abd: soft, NT, ND, bowel sounds normoactive Ext: slow movement w rigidity , no cyanosis, no clubbing, no edema Neuro: slow cognition, moves all extremities, CN intact no focal deficit noted Psych: affect flattened Objective Data Vital Signs Vital Signs: Vital Signs - 24 hr 05/29/22 15:00 05/29/22 20:00 05/30/22 00:00 Temperature 98.0 F 97.6 F Pulse Rate 74 74 65 Respiratory Rate 16 16 16 Blood Pressure 125/86 125/88 Pulse Oximetry 96 96 94 Oxygen Delivery Room Air Intake/Output Intake/Output: Intake & Output 05/27/22 05/28/22 05/29/22 05/30/22 23:59 23:59 23:59 23:59 Intake Total 2250 3490 1750 Output Total 100 2575 Balance 2150 915 1750 Meds/Results Medications: Active Medications Generic Name Dose Route Start Last Admin Trade Name Freq PRN Reason Stop Dose Admin Acetaminophen 650 mg 05/29/22 09:02 Acetaminophen 325 Mg Tablet PO Q4H PRN Mild Pain (1-3) or Fever Hydrocodone Bitart/Acetaminophen 1 tab 05/29/22 09:02 Hydrocodone/Acetaminophen (*Crx) 5-325 Mg Tablet PO Q4H PRN Moderate Pain (4-6) Alprazolam 0.5 mg 05/29/22 09:00 05/30/22 09:02 Alprazolam (*Crx) 0.5 Mg Tablet PO 0.5 mg TID LYNNE Administration Apixaban 2.5 mg 05/29/22 09:00 05/30/22 09:02 Apixaban 2.5 Mg Tablet PO 2.5 mg BID LYNNE Administration Bisacodyl 10 mg 05/29/22 08:22 Bisacodyl 10 Mg Suppository RECTAL ONCE PRN Constipation Home Med 1 each 05/29/22 11:00 05/30/22 05:54 Home Medication (Esomeprazole Magnesium [Nexium] 40 Mg Capsule,Delayed Release(Dr/Ec)) PO 06/28/22 10:59 1 each
[2022-05-30 14:44] VITALS: BP 121/82; PULSE 66; RESP 18; TEMP 37.1; O2SAT 99
[2022-05-30] MEDS: ACETAMINOPHEN 325 MG TABLET 650 MG PO (15:08)
--- NOTE | 2022-05-30 17:38 | PC.NURSE ---
pt was bladder scanned post void (output of approximately 150 mL). There was a retention of approximately 112 mL.
[2022-05-30 20:00] VITALS: PULSE 75; RESP 18; O2SAT 97
[2022-05-30 22:00] VITALS: BP 118/79; PULSE 75; RESP 18; TEMP 36.7; O2SAT 97
[2022-05-30] MEDS: HYDROcodone/acetaminophen (*CRX) 5-325 MG TABLET 1 TAB PO (22:26)
[2022-05-31] MEDS: SODIUM CHLORIDE 0.9% IV 1,000 ML 125 ML IV CONT (04:02)
[2022-05-31 05:56] VITALS: BP 155/89; PULSE 65; RESP 18; TEMP 36.7; O2SAT 100
[2022-05-31 08:27] LABS: Basophils Percent Auto 0.3 % (0.2-1.2); Eosinophils Percent Auto 0.3 % (0-4.4); Hematocrit 43.4 % (42.0-52.0); Hemoglobin 13.7 g/dL (14.0-18.0); Immature Granulocyte Absolute 0.09 K/mm3 (0.00-0.031); Immature Granulocyte Percent A 0.8 % (0-0.5); Immature Platelet Fraction Pct 10.4 % (0.9-11.2); Lymphocytes Absolute Auto 0.61 K/mm3 (0.9-3.2); Lymphocytes Percent Auto 5.2 % (18.3-44.2); Mean Corpuscular HGB Conc 31.6 g/dl (32-36); Mean Corpuscular Hemoglobin 30.2 pg (26-34); Mean Corpuscular Volume 95.8 fl (80-100); Mean Platelet Volume 11.5 fl (7.4-10.4); Monocytes Absolute Auto 1.1 K/mm3 (0.1-0.6); Monocytes Percent Auto 9.2 % (2.6-8.5); Neutrophils Absolute Auto 9.9 K/mm3 (1.3-6.7); Neutrophils Percent Auto 84.2 % (45.5-73.1); Platelet Count Result 142 k/mm3 (150-375); Red Blood Count 4.53 M/mm3 (4.6-6.20); Red Cell Distribution Width 16.4 % (11.5-14.5); White Blood Count 11.7 K/mm3 (4.5-10.0)
[2022-05-31 08:43] LABS: Anion Gap 10 mmol/L (8-16); Blood Urea Nitrogen 11 mg/dL (9-20); Calcium 8.7 mg/dL (8.4-10.2); Carbon Dioxide 26 mmol/L (22-30); Chloride 103 mmol/L (98-107); Estimated CRCL calculation 113 ml/min; Estimated Glomerular Filt Rate > 60; Glucose 92 mg/dL (65-110); Potassium 3.9 mmol/L (3.4-5.0); Sodium 139 mmol/L (137-145)
--- NOTE | 2022-05-31 08:46 | WPDNEURCNPN ---
Assessment and Plan Assessment and plan (1) Parkinsons disease: Code(s): G20 - Parkinson's disease Status: Acute Assessment and Plan: Mr. Peralta is a 72 year old male with a history of Parkinson's disease currently admitted due to complications secondary to UTI. He does not have significant tremor or rigidity and his mental status was appropriate at that time of my examination. Any fluctuations may be secondary to delirium due to his current illness, also in the setting of dementia. Would defer any changes to duopa pump to his primary Neurologist at his next follow-up. Consult date: 05/31/22 Time Seen: 11:56 Reason for consult: Parkinson's Disease HPI: Rodolfo Peralta Jr. is a 72 year old male with a history of Parkinson's Disease (on Sinemet pump), dementia, depression, COPD, Mo's esophagus who initially presented about two weeks ago to an OSH for AMS and was found to have a UTI. He presented yesterday due to increased anxiety, agitation, restlessness, and choreoathetoid movements. He was found to have leukocytosis and UA was concerning for UTI. He is currently being treated for E. coli bacteremia. He has not had any fevers today. His current medications include Effexor, Xanax, and Eliquis (for previous clots in his legs). As far as his Parkinson's goes. he has a Duopa pump that is managed by his Neurologist at [facility]. They have recently cut down to 1 cartridge per day due to worsening dyskinesias while on two cartridges. He was previously on Aricept for his dementia, but no longer on it because they thought it was making him agitated. feels overall his Parkinson's is stable. Review of Systems Constitutional: Constitutional: Denies chills Comments: No fever Eyes: Eyes: Reports no additional eye complaints ENT: Reports Normal hearing present Cardiovascular: Cardiovascular: Reports no additional cardiovascular complaints Respiratory: Respiratory: Reports no additional respiratory complaints Gastrointestinal: Gastrointestinal: Reports no additional gastrointestinal complaints Genitourinary: Comments: urinary retention Musculoskeletal: Musculoskeletal: Reports stiffness Integumentary/Breasts: Skin/Breast: Reports system reviewed and no additional complaints, except as docu Neurologic: Reports abnormal gait and Reports confusion Psychiatric: Psychiatric: Reports anxiety and Reports depression [facility] Past Medical History Medical History Anxiety Barretts esophagus COPD (chronic obstructive pulmonary disease) Dementia Depression DVT (deep venous thrombosis) Parkinsons disease Surgical History Surgical History History of esophagogastroduodenoscopy (EGD) S/P percutaneous endoscopic gastrostomy (PEG) tube placement Social History Social History Smoking status: Unknown if ever smoked Spiritual care concerns: No Meds Home Medications and Allergies Home Medications Medication Instructions Recorded Confirmed Type alprazolam 0.5 mg tablet 0.5 mg PO TID 05/28/22 05/29/22 History apixaban 2.5 mg tablet (Eliquis) 2.5 mg PO BID 05/29/22 05/29/22 History cetirizine 5 mg-pseudoephedrine ER 1 tablet PO Q12H PRN Allergy 05/29/22 05/29/22 History 120 mg tablet,extended Symptoms release,12hr (Zyrtec-D) esomeprazole magnesium 40 mg 40 mg PO DAILY 05/29/22 05/29/22 History capsule,delayed release (Nexium) ondansetron 4 mg disintegrating 4 mg PO DAILY 05/29/22 05/29/22 History tablet rosuvastatin 10 mg tablet 10 mg PO DAILY 05/29/22 05/29/22 History venlafaxine 75 mg tablet 75 mg PO TID 05/29/22 05/29/22 History Allergies Allergy/AdvReac Type Severity Reaction Status Date / Time morphine Allergy Severe ESOPHAGEAL Verified 05/28/22 23:20 SPASM niacin Allergy Severe Rash Verified 05/28/22 23:20 Penicillins All
[2022-05-31] MEDS: TAMSULOSIN HCL 0.4 MG CAPSULE PO (09:00)
[2022-05-31] MEDS: VENLAFAXINE HCL 75 MG TABLET PO ×3 (09:00→16:30)
[2022-05-31] MEDS: APIXABAN 2.5 MG TABLET PO ×2 (09:00→16:29)
[2022-05-31] MEDS: ONDANSETRON HCL ODT 4 MG TABLET PO (09:00)
[2022-05-31] MEDS: ALPRAZolam (*CRX) 0.5 MG TABLET PO ×3 (09:00→16:29)
[2022-05-31] MEDS: LORATADINE/PSEUDOEPHEDRINE (*CRX) 10/240 MG TABLET ER 24 HR 1 TAB PO (09:00)
[2022-05-31] MEDS: ROSUVASTATIN 10 MG TABLET PO (09:00)
[2022-05-31 11:27] VITALS: BMI 23.3
--- NOTE | 2022-05-31 12:31 | PM.IMPN ---
Progress Note: A&P Assessment and Plan (1) Sepsis: Code(s): A41.9 - Sepsis, unspecified organism Status: Acute (2) Bacteremia, escherichia coli: Code(s): R78.81 - Bacteremia; B96.20 - Unspecified Escherichia coli [E. coli] as the cause of diseases classified elsewhere Status: Acute (3) Acute UTI: Code(s): N39.0 - Urinary tract infection, site not specified Status: Acute (4) Urinary retention with incomplete bladder emptying: Code(s): R33.9 - Retention of urine, unspecified Status: Acute (5) Dementia: Qualifiers: Dementia behavioral disturbance: without behavioral disturbance Dementia type: Parkinson's disease Qualified Code(s): G20 - Parkinson's disease; F02.80 - Dementia in other diseases classified elsewhere without behavioral disturbance Code(s): F03.90 - Unspecified dementia without behavioral disturbance Status: Acute (6) Barretts esophagus: Code(s): K22.70 - Mo's esophagus without dysplasia Status: Acute (7) Parkinsons disease: Code(s): G20 - Parkinson's disease Status: Acute (8) S/P percutaneous endoscopic gastrostomy (PEG) tube placement: Code(s): Z93.1 - Gastrostomy status Status: Acute Plan 05/28/22 ?admit to regular medical floor ?early goal therapy in progress ?started on levofloxacin ?cultures in progress ?supportive care ?secondary to urinary tract infection ?patient with pansensitive E coli growing in culture from May 08, 2022 ?supportive care ?PPI ?continue carbidopa levodopa pump ?local care 05/29/22 cont Levaquin cont Sinemet per J tube britt insertion if ongoing urinary retention urine cx pending trial flomax started empirically 05/30/22 rising leukocytosis blood and urine cx positive for gram neg bacilli (Ecoli in urine) will cover for ESBL ecoli w imipenem until sensitivities released cont IVFs cont home meds c/s Dr Ward to rigoberto pt for possible improvement of parkinsons sxs 05/31/22 seen by Neurology, pt has recently had his Parkinson's medications adjusted by his outpt Neurologist. no further adjustments recommended at this time Ecoli Bacteremia and UTI on Ertapenem pt responding appropriately to complete 5 days IV tx tomorrow and then dc on PO abx Levaquin for 5 more days Subjective Date/time seen: 05/31/22 12:31 ok at bedside POC reviewed w her. all questions answered Review of Systems Review of Systems: All systems reviewed & are unremarkable except as noted in HPI and below Exam Narrative: GEN: NAD, AAOx2, cooperative HEENT: NCAT, MMM, EOMI Neck: no JVD Heart: S1S2 RRR Lungs: CTA B/l Abd: soft, NT, ND, bowel sounds normoactive Ext: slow movement w rigidity , no cyanosis, no clubbing, no edema Neuro: slow cognition, moves all extremities, CN intact no focal deficit noted Psych: affect flattened Objective Data Vital Signs Vital Signs: Vital Signs - 24 hr 05/30/22 14:44 05/30/22 22:00 05/30/22 20:00 Temperature 98.8 F 98.1 F Pulse Rate 66 75 75 Respiratory Rate 18 18 18 Blood Pressure 121/82 118/79 Pulse Oximetry 99 97 97 Oxygen Delivery Room Air 05/31/22 05:56 05/31/22 08:00 Temperature 98.0 F Pulse Rate 65 Respiratory Rate 18 Blood Pressure 155/89 H Pulse Oximetry 100 Oxygen Delivery Room Air Intake/Output Intake/Output: Intake & Output 05/28/22 05/29/22 05/30/22 05/31/22 23:59 23:59 23:59 23:59 Intake Total 2250 3490 4390 540 Output Total 100 2575 250 Balance 2150 915 4140 540 Meds/Results Medications: Active Medications Generic Name Dose Route Start Last Admin Trade Name Freq PRN Reason Stop Dose Admin Acetaminophen 650 mg 05/29/22 09:02 05/30/22 15:08 Acetaminophen 325 Mg Tablet PO 650 mg Q4H PRN Administration Mild Pain (1-3) or Fever Hydrocodone Bitart/Acetaminophen 1 tab 05/29/22 09:02 05/30/22 22:26 Hydrocodone/Acetaminophen (*Crx) 5-325 Mg Tabl
[2022-05-31 14:00] VITALS: BP 123/88; PULSE 91; RESP 17; TEMP 36.4; O2SAT 100
--- NOTE | 2022-05-31 14:26 | PCOTNOTE ---
Attempted to see pt. for occupational therapy evaluation. Pt. is currently unable to give reliable prior level of function history and will likely see greater benefit from therapy evaluation when is present to confirm baseline functioning.
[2022-05-31] MEDS: SODIUM CHLORIDE 0.9% IV 1,000 ML 70 ML IV CONT (16:28)
[2022-05-31 20:00] VITALS: PULSE 90; RESP 18; O2SAT 97
[2022-05-31 20:52] VITALS: BP 116/78; PULSE 90; RESP 18; TEMP 36.6; O2SAT 97
[2022-06-01 05:47] VITALS: BP 145/96; PULSE 71; RESP 16; TEMP 37.1; O2SAT 97
[2022-06-01 06:58] LABS: Basophils Percent Auto 0.2 % (0.2-1.2); Eosinophils Absolute Auto 0.1 K/mm3 (0-0.3); Eosinophils Percent Auto 0.7 % (0-4.4); Hematocrit 39.5 % (42.0-52.0); Hemoglobin 12.3 g/dL (14.0-18.0); Immature Granulocyte Absolute 0.19 K/mm3 (0.00-0.031); Immature Granulocyte Percent A 2.3 % (0-0.5); Lymphocytes Absolute Auto 1.03 K/mm3 (0.9-3.2); Lymphocytes Percent Auto 12.2 % (18.3-44.2); Mean Corpuscular HGB Conc 31.1 g/dl (32-36); Mean Corpuscular Hemoglobin 29.9 pg (26-34); Mean Corpuscular Volume 96.1 fl (80-100); Monocytes Percent Auto 11.4 % (2.6-8.5); Neutrophils Absolute Auto 6.2 K/mm3 (1.3-6.7); Neutrophils Percent Auto 73.2 % (45.5-73.1); Platelet Count Result 156 k/mm3 (150-375); Red Blood Count 4.11 M/mm3 (4.6-6.20); Red Cell Distribution Width 16.7 % (11.5-14.5); White Blood Count 8.4 K/mm3 (4.5-10.0)
[2022-06-01 07:18] LABS: Anion Gap 8 mmol/L (8-16); Blood Urea Nitrogen 12 mg/dL (9-20); Calcium 8.9 mg/dL (8.4-10.2); Carbon Dioxide 27 mmol/L (22-30); Chloride 101 mmol/L (98-107); Estimated CRCL calculation 113 ml/min; Estimated Glomerular Filt Rate > 60; Glucose 81 mg/dL (65-110); Magnesium 1.7 mg/dL (1.6-2.3); Potassium 3.3 mmol/L (3.4-5.0); Sodium 136 mmol/L (137-145)
[2022-06-01 07:56] LABS: CRP 12.8 mg/dL (<1.0)
[2022-06-01] MEDS: ALPRAZolam (*CRX) 0.5 MG TABLET PO (08:21)
[2022-06-01] MEDS: VENLAFAXINE HCL 75 MG TABLET PO (08:23)
[2022-06-01] MEDS: TAMSULOSIN HCL 0.4 MG CAPSULE PO (08:23)
[2022-06-01] MEDS: ONDANSETRON HCL ODT 4 MG TABLET PO (08:24)
[2022-06-01] MEDS: ROSUVASTATIN 10 MG TABLET PO (08:24)
[2022-06-01] MEDS: APIXABAN 2.5 MG TABLET PO (08:24)
[2022-06-01] MEDS: POTASSIUM CHLORIDE 20 MEQ PACKET (FOR LIQUID) 40 MEQ PO (10:02)
--- NOTE | 2022-06-01 13:36 | PM.DS ---
DS: Admitting Diagnosis Discharge Date 06/01/22 Admitting Diagnosis (1) Sepsis: (2) Acute UTI: (3) Dementia: (4) Barretts esophagus: (5) Parkinsons disease: ? (6) S/P percutaneous endoscopic gastrostomy (PEG) tube placement: DS: Discharge Diagnosis Discharge Diagnosis (1) Bacteremia, escherichia coli: Code(s): R78.81 - Bacteremia; B96.20 - Unspecified Escherichia coli [E. coli] as the cause of diseases classified elsewhere Status: Acute (2) Urinary retention with incomplete bladder emptying: Code(s): R33.9 - Retention of urine, unspecified Status: Acute (3) S/P percutaneous endoscopic gastrostomy (PEG) tube placement: Code(s): Z93.1 - Gastrostomy status Status: Acute (4) Parkinsons disease: Code(s): G20 - Parkinson's disease Status: Acute (5) Sepsis: Code(s): A41.9 - Sepsis, unspecified organism Status: Acute (6) Dementia: Qualifiers: Dementia type: Parkinson's disease Dementia behavioral disturbance: without behavioral disturbance Qualified Code(s): G20 - Parkinson's disease; F02.80 - Dementia in other diseases classified elsewhere without behavioral disturbance Code(s): F03.90 - Unspecified dementia without behavioral disturbance Status: Acute (7) Barretts esophagus: Code(s): K22.70 - Mo's esophagus without dysplasia Status: Acute (8) Acute UTI: Code(s): N39.0 - Urinary tract infection, site not specified Status: Acute DS: Summary Hospital Course Reason for hospitalization: [facility] Hospital Course: 72-year-old male with past medical history significant for Parkinson's disease, status post percutaneous carbidopa levodopa pump implantation for continues infusion, Parkinson's dementia, PEG tube patient is mainly wheelchair bound and bed ridden.? brings in to the emergency room for evaluation due to concerns after his been very anxious ,? agitated, restless and having choreoathetoid movements for the last day or so patient had a visit to the emergency room where he was diagnosed with urinary tract infection and sent home this was roughly 2 weeks ago. 05/28/22 ?admit to regular medical floor ?early goal therapy in progress ?started on levofloxacin ?cultures in progress ?supportive care ?secondary to urinary tract infection ?patient with pansensitive E coli growing in culture from May 08, 2022 ?supportive care ?PPI ?continue carbidopa levodopa pump ?local care 05/29/22 cont Levaquin cont Sinemet per J tube britt insertion if ongoing urinary retention urine cx pending trial flomax started empirically 05/30/22 rising leukocytosis blood and urine cx positive for gram neg bacilli (Ecoli in urine) will cover for ESBL ecoli w imipenem until sensitivities released cont IVFs cont home meds c/s Dr Ward to rigoberto pt for possible improvement of parkinsons sxs 05/31/22 seen by Neurology, pt has recently had his Parkinson's medications adjusted by his outpt Neurologist. no further adjustments recommended at this time Ecoli Bacteremia and UTI on Ertapenem pt responding appropriately to complete 5 days IV tx tomorrow and then dc on PO abx Levaquin for 5 more days? 06/01/22 Patient has completed 5 days of ertapenem Discharged home in stable condition with home health care to care of spouse on Levaquin for an additional 5 days to begin on 06/02/22 Patient is advised to follow-up with his established neurologist, primary care physician, and to see Urology. Patient is having intermittent incomplete voiding which likely is attributing to urinary tract infection. He has advanced Parkinson's and could be having urgent issues associated with this disease process. Status at Discharge Functional status at discharge: wheelchair bound Overall status at discharge: patient is progressing back to baseline Time Spent with Patient Time attestation: Total time spent providing and/or coordinating discharge se
[2022-06-01 14:00] VITALS: BP 94/67; PULSE 85; RESP 18; TEMP 36.3; O2SAT 97
== END 2022-06-01 15:05 | disposition home health service (06) | DRG 690 ==
LOC: ANHED 20:27 → ANH3MEDSUR 21:53
PROVIDERS: Preventive Medicine Aerospace Medicine; Admitting Provider Internal Medicine; Emergency Provider General Practice; PCP Family Medicine; Visit Provider Hospitalist
DX: N39.0 Urinary tract infection, site not specified (principal); R33.9 Retention of urine, unspecified; Z20.822 Contact with and (suspected) exposure to COVID-19; G20 Parkinson's disease; F03.90 Unspecified dementia, unspecified severity, without behavioral disturbance, psychotic disturbance, mood disturbance, and anxiety; K22.70 Barrett's esophagus without dysplasia; J44.9 Chronic obstructive pulmonary disease, unspecified; F41.9 Anxiety disorder, unspecified; F32.A Depression, unspecified; Z93.1 Gastrostomy status; Z86.718 Personal history of other venous thrombosis and embolism
CPT/HCPCS: 36415; 51701; 71045; 74177; 80048; 80053; 81001; 83605; 83690; 83735; 85025; 85055; 85610; 85730; 86140; 87040; 87077; 87086; 87088; 87186; 87502; 93005; 96361; 96365; 96366; 96367; 96375; 97166; 99285; A9270; C9803; G0378; J0131; J0696; J0743; J1956; J2060; J7030; J7040; Q9967; U0003; U0005